=== PATIENT | female | born 1985 | race African-American/Black ===

== ENCOUNTER 2017-02-26 15:54 | Emergency (ER) | payer OTHER ==
[2017-02-26] MEDS ORDERED: NO MEDICATIONS (15:57)
== END 2017-02-26 16:55 | disposition home or self-care (01) ==
LOC: SED 15:54
DX: J02.9 Acute pharyngitis, unspecified (principal); F17.200 Nicotine dependence, unspecified, uncomplicated
CPT/HCPCS: 87651; 96372; 99283; J0561